=== PATIENT | male | born 1965 | race Caucasian/White ===

== ENCOUNTER 2018-05-08 02:52 | Emergency (ER) | payer OTHER ==
[~2018-05-08] VITALS: Ht 170.2 cm; Wt 79.4 kg
--- NOTE | 2018-05-08 02:59 | ED SKIN/ALLERGY COMPLAINT ---
History of Present Illness General Chief Complaint: Allergy Symptoms Stated Complaint: BELIEVES HE IS HAVING AN ALLERGIC REACTION Source: patient Exam Limitations: no limitations Vital Signs & Intake/Output Vital Signs & Intake/Output Vital Signs Date Time Temp Pulse Resp B/P B/P Pulse O2 O2 Flow FiO2 Mean Ox Delivery Rate 05/08 0306 Room Air 05/08 0256 98.2 89 18 165/106 97 Room Air Allergies Coded Allergies: No Known Drug Allergies (NKDA 05/08/18) Reconcile Medications Prednisone 50 MG TABLET 1 TAB PO DAILY allergy Triage Nurses Notes Reviewed? yes Onset: Gradual Duration: hour(s): Timing: recent history Severity: moderate Location: generalized Possible Factors: on augmentin and ciprodex Modifying Factors: Worsens With: scratching. Associated Symptoms: rash on trunk HPI: 53 yo gentleman presents with diffuse itching and raised red rash for the past 2 hours. He has been taking augmentin for the past 1-2 days for an ear infection, last dose was yesterday. He notes it also upset his stomach. He has no dyspnea, lightheadedness, chills, palpitations. He is otherwise well. Past History Medical History Any Pertinent Medical History? see below for history Cardiovascular: hypertension Surgical History Surgical History: non-contributory Psychosocial History What is your primary language Nepalese Family History Hx Contributory? No Review of Systems Review of Systems Constitutional: Reports: no symptoms. EENTM: Reports: no symptoms. Respiratory: Reports: no symptoms. Cardiovascular: Reports: no symptoms. GI: Reports: no symptoms. Genitourinary: Reports: no symptoms. Musculoskeletal: Reports: no symptoms. Skin: Reports: no symptoms. Neurological/Psychological: Reports: no symptoms. Hematologic/Endocrine: Reports: no symptoms. Immunologic/Allergic: Reports: no symptoms. All Other Systems: Reviewed and Negative Physical Exam Physical Exam General Appearance: well developed/nourished, mild distress Head: atraumatic Eyes: Bilateral: normal appearance. Ears, Nose, Throat: normal pharynx, normal ENT inspection, hearing grossly normal, except for mild inflammation in left ear canal. Neck: normal inspection, supple Respiratory: normal breath sounds, chest non-tender, no respiratory distress, quiet respiration, lungs clear Cardiovascular: regular rate/rhythm Gastrointestinal: soft, non-tender Back: normal inspection Extremities: normal inspection, normal range of motion, no edema Neurologic/Psych: awake, alert, oriented x 3, normal mood/affect Skin: diffuse urticaria on trunk, swelling of right upper lip. Lymphatic: no anterior cervical renetta Progress Differential Diagnosis: allergic reaction, hives vs other. Plan of Care: Current Medications Sig/Kenrick Start time Last Medication Dose Stop Time Status Admin Dexamethasone 8 MG ONCE ONE 05/08 300 UNVr (Decadron) 05/08 301 Diphenhydramine HCl 25 MG ONCE ONE 05/08 300 UNVr (Benadryl) 05/08 301 Departure Departure Disposition: HOME OR SELF CARE Condition: Stable Clinical Impression Primary Impression: Allergic reaction Secondary Impressions: Urticaria Referrals: Unknown Departure Forms: Customer Survey General Discharge Information Prescriptions: Current Visit Scripts Prednisone 1 TAB PO DAILY #3 TAB Comments 05/08/18, 4:09am... pt feeling better with reduction in his symptoms. discussed at length. he will refrain from penicillins from now on.
[2018-05-08] MEDS ORDERED: PREDNISONE50 M1 PO (03:01)
[2018-05-08 04:15] VITALS: BP 142/88
== END 2018-05-08 04:16 ==
LOC: ERH 02:52
DX: L50.0 Allergic urticaria (principal); T36.0X5A Adverse effect of penicillins, initial encounter

== ENCOUNTER 2018-05-22 16:50 | Emergency (ER) | payer OTHER ==
[~2018-05-22] VITALS: Ht 170.2 cm; Wt 79.4 kg
[~2018-05-22 16:50] MED LIST: PREDNISONE50 M1 PO
[2018-05-22 16:56] VITALS: BP 169/83
--- NOTE | 2018-05-22 17:59 | ED EAR COMPLAINT ---
History of Present Illness General Chief Complaint: Ear Complaints Stated Complaint: EAR PAIN/BLOCKAGE Source: patient Exam Limitations: no limitations Vital Signs & Intake/Output Vital Signs & Intake/Output Vital Signs Date Time Temp Pulse Resp B/P B/P Pulse O2 O2 Flow FiO2 Mean Ox Delivery Rate 05/22 1656 97.0 55 18 169/83 98 Room Air Allergies Coded Allergies: Penicillins (Intermediate, RASH 05/08/18) amoxicillin (Intermediate, LIP SWELLING, HIVES 05/22/18) Reconcile Medications Neomycin/Polymyxin B Sulf/Hc (Jmhdrnha-Bxddepypl-Bo Ear Susp) 3.5 MG/ML-10,000 UNIT/ML-1 % DROPS.SUSP 4 GTT OT TID OTITIS Prednisone 50 MG TABLET 1 TAB PO DAILY allergy Triage Note: 53M WITH LEFT EAR PAIN/MUFFLING FROM INFECTION X3 WEEKS, SAW PMD WHO PRESCRIBED EAR GTT AND REFERRED HIM TO ENT BUT CANT GET IN UNTIL NEXT WEEK. DENIES PAIN, SEVERE MUFFLING. INCREASING SINUS CONGESTION ISSUES. Triage Nurses Notes Reviewed? yes Onset: Gradual Duration: week(s): Timing: recent history Injury Environment: home Severity: moderate HPI: 53-year-old male presents to emergency department complaining of persistent pain and clogged sensation in left ear 2.5 weeks. Patient states that he was initially seen in urgent care and started on amoxicillin however after he began this medication he developed a rash. Patient presented to the emergency department following the rash was medicated with Benadryl, prednisone. Patient was also taking Ciprodex eardrops. Patient has followed up with his primary care doctor since and was instructed to discontinue ear drops, he has been off the drops for about 1 week. Patient states that pain has been persistent for the full duration and he also has sensation that the ear is clogged, he states his hearing feels 80% reduced compared to baseline. Primary Care doctor set the patient up with an ENT specialist however he does not an appointment until 1 week from today. Patient reports left sided pressure to his face as well. (Sue KELLY,Lo Donnelly) Past History Travel History Traveled to [place] past 21 day No Medical History Any Pertinent Medical History? see below for history Neurological: NONE EENT: NONE Cardiovascular: hypertension Respiratory: NONE Gastrointestinal: NONE Hepatic: NONE Renal: NONE Musculoskeletal: NONE Psychiatric: NONE Endocrine: NONE Surgical History Surgical History: non-contributory Psychosocial History What is your primary language Nepali Tobacco Use: Never used Family History Hx Contributory? No (Lo Hsu) Review of Systems Review of Systems Constitutional: Reports: no symptoms. EENTM: Reports: see HPI. Respiratory: Reports: no symptoms. Cardiovascular: Reports: no symptoms. GI: Reports: no symptoms. Genitourinary: Reports: no symptoms. Musculoskeletal: Reports: no symptoms. Skin: Reports: no symptoms. Neurological/Psychological: Reports: no symptoms. Hematologic/Endocrine: Reports: no symptoms. Immunologic/Allergic: Reports: no symptoms. All Other Systems: Reviewed and Negative (Lo Hsu) Physical Exam Physical Exam General Appearance: well developed/nourished, no apparent distress, alert, awake Head: atraumatic, normal appearance Eyes: Bilateral: normal appearance. Ears: Left: discharge, other. Right: canal normal, Tympanic normal. Nose: normal inspection Mouth/Throat: normal mouth inspection, pharynx normal Neck: normal inspection, supple, full range of motion Cardiovascular/Respiratory: no respiratory distress Back: normal inspection, normal range of motion Neurologic/Psych: awake, alert, oriented x 3 Skin: intact, normal color, warm/dry (Lo Hsu) Progress Differential Diagnoses I considered the following diagnoses in my evaluation of the patient: [Otitis media, otitis externa, tympanic membrane abnormality, sinusitis, pharyngitis] Plan of Care: Patient has white discharge present in the left ear canal at this time. He does not have cerumen impaction. Findings are most consistent with otitis externa. Patient does have an appointment scheduled with ENT for next week. Will initiate a new eardrops and outpatient follow-up as scheduled. We'll also initiate nasal spray to help with the patient's left-sided facial pressure. Patient agrees with the plan of care. He is in no acute distress, nontoxic appearing, vital signs are stable. Initial ED EKG: none (Lo Hsu) Departure Departure Disposition: HOME OR SELF CARE Condition: Stable Clinical Impression Primary Impression: Ear pain Qualifiers: Laterality: left Qualified Code: H92.02 - Otalgia, left ear Referrals: Minoo Baldwin APRN (PCP/Family) Additional Instructions: Use ear drops as prescribed. Also begin flonase nasal spray for sinus pressure. Follow up with Ear nose and throat doctor. Return with worsening symptoms or concerns. Please note that there might be incidental findings in your evaluation that are unrelated to the current emergency department visit. Please notify your primary care doctor about this emergency department visit in order to obtain and review all of the testing performed so that these incidental findings can be monitored as needed. If you had an x-ray performed, please understand that some fractures may not be seen on the initial set of x-rays. If your symptoms persist you might need a repeat set of x-rays to check for such a fracture. If you had a laceration evaluated, please understand that foreign bodies such as glass or wood may not be visible to the naked eye or on plain x-rays. If the wound becomes red, swollen, increasingly more painful or if there is any drainage from the wound, please have it reevaluated by a physician for the possibility of a retained foreign body. If you're unable to follow up as outlined in the discharge instructions please return to the emergency department. Thank you for choosing the [facility] Emergency Department for your care. It was a pleasure to serve you today. Departure Forms: Customer Survey General Discharge Information Prescriptions: Current Visit Scripts Neomycin/Polymyxin B Sulf/Hc (Idhouxle-Zmjwqeffu-Vb Ear Susp) 4 GTT OT TID #10 ML (Sue KELLY,Lo Donnelly) PA/GAS TREATER Co-Sign Statement Statement: ED Attending supervision documentation- [] I saw and evaluated the patient. I have also reviewed all the pertinent lab results and diagnostic results. I agree with the findings and the plan of care as documented in the PA's/GAS TREATER's documentation. [X] I have reviewed the ED Record and agree with the PA's/GAS TREATER's documentation. [] Additions or exceptions (if any) to the PAs/GAS TREATER's note and plan are summarized below: [] (Buddy EID,Foster Fenton)
[2018-05-22] MEDS ORDERED: NEOMYCIN-POLYMY10 M1 OT (18:28)
== END 2018-05-22 18:52 ==
LOC: ERH 16:50
DX: H92.02 Otalgia, left ear (principal)